=== PATIENT | female | born 1990 | race Caucasian/White ===

== ENCOUNTER 2021-01-20 14:05 | Emergency (ER) | payer OTHER ==
[~2021-01-20] VITALS: Ht 154.9 cm; Wt 77.3 kg
[2021-01-20 14:37] VITALS: TEMP 98.3
[2021-01-20 15:38] LABS: BASO % 0.3 % (0.0-2.0); EOS # 0.3 (0.0-0.7); EOS % 2.1 % (0-4.0); GRAN # 10.6 (1.4-6.5); GRAN % 75.2 % (42.2-75.2); HEMOGLOBIN 10.5 g/dl (12.5-16.0); LYMPH # 2.2 (1.2-3.4); LYMPH % 15.4 % (20.0-51.0); MEAN CELL VOLUME 83 fl (80.0-100.0); MEAN CORPUSCULAR HEMOGLOBIN 26 pg (27.0-31.0); MEAN CORPUSCULAR HGB CONC 32 g/dl (33.0-37.0); MEAN PLATELET VOLUME 8.6 fl (7.4-10.4); MONO # 0.9 (0.1-0.6); MONO % 6.5 % (1.7-9.3); PLATELET COUNT 378 K/mm3 (130-400); RED BLOOD COUNT 3.98 M/mm3 (4.10-5.30); REDCELL DISTRIBUTION WIDTH-CV 15.2 % (11.5-14.5)
[2021-01-20 15:40] LABS: HEMATOCRIT 33.1 % (37.0-47.0)
[2021-01-20 15:50] LABS: ALANINE AMINOTRANSFERASE 61 U/L (4-34); ALBUMIN 3.5 gm/dL (3.5-5.0); ALKALINE PHOSPHATASE 63 U/L (50-136); ANION GAP 10 mmol/L (7-16); AST,SGOT 42 U/L (15-37); BILIRUBIN,TOTAL < 0.1 mg/dL (0.0-1.0); BLOOD UREA NITROGEN 9 mg/dL (7-17); CALCIUM 8.7 mg/dL (8.4-10.2); CARBON DIOXIDE 21 mmol/L (22-30); CHLORIDE 103 mmol/L (98-107); GLUCOSE 108 mg/dL (74-106); POTASSIUM 3.6 mmol/L (3.4-5.0); SODIUM 134 mmol/L (137-145); TOTAL PROTEIN 6.8 gm/dL (6.4-8.2)
[2021-01-20] MEDS ORDERED: PRENATAL TABLET PO (16:16)
[2021-01-20] MEDS ORDERED: ASPIRIN 81M81 MG/TA2 PO (16:17)
[2021-01-20] MEDS ORDERED: VITAL-D1 TAB PO (16:17)
[2021-01-20] MEDS ORDERED: FOLIC ACID 11 MG/TA1 PO (16:17)
[2021-01-20 16:52] LABS: COLLECTION METHOD CLEAN CATCH
[2021-01-20 16:57] LABS: MUCOUS Present /lpf; PH 6 (5-8); SQUAMOUS EPITHELIAL 0-2 /hpf; URINE APPEARANCE Clear; URINE BACTERIA Rare /hpf; URINE BILIRUBIN Negative (NEGATIVE); URINE BLOOD Negative (NEGATIVE); URINE COLOR Yellow; URINE GLUCOSE Negative (NEGATIVE); URINE KETONE Negative (NEGATIVE); URINE LEUKOCYTE ESTERASE Negative (NEGATIVE); URINE NITRATE Negative (NEGATIVE); URINE PROTEIN(semi-quant) Negative (NEGATIVE); URINE RBC 0-2 /hpf; URINE UROBILINOGEN Negative (NEGATIVE)
[2021-01-20 18:38] VITALS: BP 121/89; PULSE 100
== END 2021-01-20 18:39 | disposition home or self-care (01) ==
LOC: COL.ER 14:05
PROVIDERS: Physician Assistant
DX: O26.812 Pregnancy related exhaustion and fatigue, second trimester (principal); R42 Dizziness and giddiness; O99.412 Diseases of the circulatory system complicating pregnancy, second trimester; R00.0 Tachycardia, unspecified; O30.042 Twin pregnancy, dichorionic/diamniotic, second trimester; Z3A.16 16 weeks gestation of pregnancy; Z88.0 Allergy status to penicillin; Z79.82 Long term (current) use of aspirin
CPT/HCPCS: J7030